=== PATIENT | female | born 1935 | race Caucasian/White ===

== ENCOUNTER → 2017-02-15 | Outpatient (CLI) | payer MEDICARE ==
--- NOTE | 2017-02-10 12:31 | MH ---
cc: [facility], ITMMY AGUIRRE DATE OF ADMISSION: 02/15/2017 ADMISSION DIAGNOSIS Cloudy posterior capsule, right eye. HISTORY OF PRESENT ILLNESS This 81-year-old white female is coming through [facility] for the purpose of a YAG laser posterior capsulotomy of the right eye. She is status post cataract surgery with intraocular lens implants in 2012, has done well postoperatively but now has noticed decreasing visual acuity interfering with daily activities and elected to have the above procedure. PAST MEDICAL HISTORY The patient has a history of lupus, fibromyalgia, diverticulitis, hypertension, atrial fibrillation, bladder leakage, cholesterol problems, upper back lipoma and a right torn rotator cuff. PAST SURGICAL HISTORY The past surgical history includes hysterectomy, appendectomy, sigmoidoscopy, left shoulder surgery, heart catheterization, colon surgery and the bilateral cataracts. MEDICATIONS Daily medications include: 1. Jantoven. 2. Benicar. 3. 81 mg of aspirin. 4. Digoxin. 5. Metoprolol. 6. Hydrochlorothiazide. ALLERGIES She has no known allergies. SOCIAL HISTORY Noncontributory. FAMILY HISTORY Positive for mother and sister with cataracts, mother with glaucoma, mother and sister with macular degeneration. REVIEW OF SYSTEMS Noncontributory. OCULAR EXAMINATION On ocular exam the patient's best-corrected visual acuity is 20/40 in the right eye and 20/25 -2 in the left. Visual romero are full to confrontation testing. 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 Pupils are 3 mm equal, round, reactive to light without afferent defect. Anterior segment examination reveals a posterior chamber intraocular lens in place bilaterally with a cloudy posterior capsule greater in the right eye than the left. Intraocular pressure is 21 in the right eye and 18 in the left by applanation tonometry. Dilated fundus exam revealed sharp disks with cup-to-disk ratio of 0.3 in the right eye and 0.1 in the left. 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 The macula is clear bilaterally. A posterior vitreous detachment is present bilaterally. There is some pigment superotemporally in the fundus of the right eye. IMPRESSION 1. Cloudy posterior capsule, right eye greater than left. 2. Pseudophakia, both eyes. 3. Posterior vitreous detachment, both eyes. PLAN YAG laser posterior capsulotomy of the right eye through [facility]. MD TONY Cabral/JORGE /11:29 AM /12:27 PM
[~2017-02-15] MED LIST: ALLO100T PO; ASPI81 PO; BENI40TA30 PO; DIGO.125 PO; FLUOROMETHOLONE 0.25% OPHT SUSP 5 ML BTL RIGHT EYE ONE; MACR100C PO; METO100T9 PO; PHENYLEPHRINE HCL 2.5% OPTH SOLN 2 ML BTL ONE; PHENYLEPHRINE HCL 2.5% OPTH SOLN 2 ML BTL RIGHT EYE ONE; PROPARACAINE HCL 0.5% OPHT SOLN 15 ML BTL ONE; PROPARACAINE HCL 0.5% OPHT SOLN 15 ML BTL RIGHT EYE ONE; TROPICAMIDE 1% OPHT SOLN 15 ML BTL ONE; TROPICAMIDE 1% OPHT SOLN 15 ML BTL RIGHT EYE ONE; WARF2.5 PO
--- NOTE | 2017-02-15 11:16 | MP ---
cc: TIMMY KENDALL M.D. DATE OF SURGERY 02/15/2017 PREOPERATIVE DIAGNOSIS Cloudy posterior capsule right eye. POSTOPERATIVE DIAGNOSIS Cloudy posterior capsule right eye. OPERATION YAG laser posterior capsulotomy, right eye. SURGEON Timmy Kendall MD ANESTHESIA Topical COMPLICATIONS None INDICATIONS See history and physical previously dictated. PROCEDURE The patient arrived at [facility]. Blood pressure was 160/80, pulse 82, respirations 18. A drop of Alphagan P and Mydriacyl were instilled in the right eye. The patient was seated at the YAG laser. A drop of Alcaine was instilled in the right eye and a YAG laser posterior capsulotomy lens was placed on the anterior surface of the right cornea. YAG laser posterior capsulotomy was carried out utilizing 45 exposures of 1.3 millijoules. An adequate opening was seen following the procedure. A drop of Alphagan P was instilled topically. The patient was given a prescription for a topical steroid to be used four times per day and has an appointment for follow up on the first postoperative day in my office. The patient left the [facility] in satisfactory condition. MD TONY Cabral/JIAN /10:28 AM /11:12 AM .10
== END ==
LOC: PHSDC 07:54
PROVIDERS: ATTEND Ophthalmology
DX: H26.491 Other secondary cataract, right eye (principal); H43.813 Vitreous degeneration, bilateral; M79.7 Fibromyalgia; I10 Essential (primary) hypertension; M32.9 Systemic lupus erythematosus, unspecified; I48.91 Unspecified atrial fibrillation